=== PATIENT | female | born 1980 | race American Indian/Alaskan Native ===

== ENCOUNTER 2017-09-17 02:52 | Inpatient (IN) | payer MEDICAID, OTHER ==
[2017-09-17] MEDS ORDERED: Methylergonovine 0.2 MG/1 ML Amp IM PRN (03:02)
[2017-09-17] MEDS ORDERED: Carboprost Tromethamine 250 MCG/1 ML Amp IM PRN (03:02)
[2017-09-17] MEDS ORDERED: Misoprostol 400 MCG (4 X 100 MCG TAB) RECTAL PRN (03:02)
[2017-09-17] MEDS ORDERED: Ondansetron 4 MG/2 ML SDV IV PRN (03:02)
[2017-09-17] MEDS ORDERED: Lactated Ringers 500 ML IV ONE (03:02)
[2017-09-17] MEDS ORDERED: Lidocaine 1% 30 ML SDV INJECT PRN (03:02)
[2017-09-17] MEDS ORDERED: Tranexamic Acid 1,000 MG in Sodium Chloride 0.9% 100 ML IV PRN (03:02)
--- NOTE | 2017-09-17 03:10 | PCM.LDHP ---
L&D History of Present Illness - General Date of Service: 09/17/17 Admit Problem/Dx: Patient Status Order with Admit Dx/Problem 09/17/17 03:02 Patient Status [ADT] Routine Admission Diagnosis/Problem Admission Diagnosis/Problem care Source of Information: Patient History Limitations: Reports: No Limitations - History of Present Illness Introduction:: 37-year-old presents to L&D via EMS with increased contractions. 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 She has been matt since then with increasing intensity and frequency. Baby has been active. No vaginal bleeding or leaking of fluid. - Related Data Allergies/Adverse Reactions: Allergies Allergy/AdvReac Type Severity Reaction Status Date / Time Penicillins Allergy unknown Verified 09/16/17 15:12 Home Medications: Home Meds Calcium Carbonate/Vitamin D3 [Calcium 500 + Vit D Caplet] 1 tab PO DAILY [History] FLUoxetine [PROzac] 40 mg PO DAILY 03/15/14 [History] Ibuprofen [Motrin] 400 mg PO TID 03/15/14 [History] Multivitamin [Multi Vitamin Daily] 1 each PO DAILY 03/15/14 [History] Naproxen Sodium [Aleve] 220 mg PO TID PRN 03/15/14 [History] traZODone 50 mg PO BEDTIME 03/15/14 [History] Past Medical History Genitourinary History: Reports: STD TRIAL PARALEGAL History: Reports: , Spontaneous , Other (See Below) Other OB/BYN History: molar . 9 males. 2 females. 3 PPH. 1 retained placenta Psychiatric History: Reports: Anxiety, Depression Hematologic History: Reports: Anemia, Blood Transfusion(s) Other Hematologic History: hgb 7.9 on 09-16-17 Dermatologic History: Reports: Urticaria Other Dermatologic History: itchy to abdomen. small ? pock thorpe on arms and abdomen - Infectious Disease History Infectious Disease History: Reports: Hepatitis C Other Infectious Disease History: hx of HCV which RNA on 09-04-17 was negative - Past Surgical History Female Surgical History: Reports: D&C, Dilitation & Evacuation Dermatological Surgical History: Reports: None Social & Family History - Family History Family Medical History: Noncontributory HEENT: Reports: None Cardiac: Reports: Hypertension, [place] OBGYN: Reports: , Other (See Below) Other OBGYN Family History: multiple births Psychiatric: Reports: Anxiety, Depression Endocrine/Metabolic: Reports: Diabetes, Type I, Diabetes, type II, IDDM Hematologic: Reports: Anemia Oncologic: Reports: Uterine, Other (See Below) Other Oncologic Family History: mother grandmother aunt - Tobacco Use Smoking Status *Q: Current Every Day Smoker Years of Tobacco use: 15 Packs/Tins Daily: 1 Used Tobacco, but Quit: No - Alcohol Use Days Per Week of Alcohol Use: 0 - Recreational Drug Use Recreational Drug Use: Yes Drug Use in Last 12 Months: Yes Recreational Drug Type: 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 Recreational Drug Use Frequency: Patient Refuses To Answer H&P Review of Systems - Review of Systems: Review Of Systems: See Below General: Reports: No Symptoms HEENT: Reports: No Symptoms Pulmonary: Reports: No Symptoms Cardiovascular: Reports: No Symptoms Gastrointestinal: Reports: No Symptoms Genitourinary: Reports: No Symptoms Musculoskeletal: Reports: Back Pain Skin: Reports: No Symptoms L&D Exam - Exam Exam: See Below - OB Specific Contraction Intensity: Moderate to Strong Movement: Active Heart Tones: Present Heart Tones per Min: 120 Heart Rate (FHR) Variability: Moderate (6-25 bmp) Presentation: Vertex - Dinero Score Dinero Score Cervix Position: Anterior Dinero Score Consistency: Soft Dinero Score Effacement: >80% Dinero Score Dilation: > 5 cm Dinero Score 's Station: -1 ,0 Dinero Score Total: 12 - Exam General: Alert, Oriented HEENT: Mucosa Moist & [place], Posterior Pharynx Clear Lungs: Clear to Auscultation, Normal Respiratory Effort Cardiovascular: Regular Rate, Regular Rhythm Extremities: No Pedal Edema Skin: Warm, Dry, Intact - Problem List (1) Chlamydia infection affecting in third trimester SNOMED Code(s): 6380567102835 ICD Code: O98.313 - OTH INFECT W SEXL MODE OF TRANSMISS COMP PREG, THIRD TRI ; A74.9 - CHLAMYDIAL INFECTION, UNSPECIFIED Status: Acute Current Visit: Yes (2) Gonorrhea affecting in third trimester SNOMED Code(s): 66311057 ICD Code: O98.213 - GONORRHEA COMPLICATING , THIRD TRIMESTER Status: Acute Current Visit: Yes (3) Limited care in third trimester SNOMED Code(s): 901762376 ICD Code: O09.33 - SUPRVSN OF PREG W INSUFFICIENT ANTENAT CARE, THIRD TRIMESTER Status: Acute Current Visit: Yes (4) History of hepatitis C SNOMED Code(s): 97694304326193 ICD Code: Z86.19 - PERSONAL HISTORY OF OTHER INFECTIOUS AND PARASITIC DISEASES Status: Acute Current Visit: Yes (5) Anemia affecting in third trimester SNOMED Code(s): 66967624 ICD Code: O99.013 - ANEMIA COMPLICATING , THIRD TRIMESTER Status: Acute Current Visit: Yes (6) Grand multipara in labor in third trimester SNOMED Code(s): 637871628 ICD Code: O09.43 - SUPRVSN OF W GRAND MULTIPARITY, THIRD TRIMESTER Status: Acute Current Visit: Yes (7) Drug use affecting in third trimester SNOMED Code(s): 73146151, 308809544 ICD Code: O99.323 - DRUG USE COMPLICATING , THIRD TRIMESTER Status : Acute Current Visit: Yes (8) History of hemorrhage, currently in third trimester SNOMED Code(s): 654242528, 341610710 ICD Code: O09.293 - SUPRVSN OF PREG W POOR REPRODCTV OR OBSTET HX, THIRD TRI Status: Acute Current Visit: Yes (9) Advanced maternal age during SNOMED Code(s): 445464689 ICD Code: [id number] - Status: Acute Current Visit: Yes Problem List Initiated/Reviewed/Updated: Yes Orders Last 24hrs: Active Orders 24 hr Category Date Time Status Patient Status [ADT] Routine ADT 09/17/17 03:02 Ordered Communication Order [RC] ASDIRECTED Care 09/17/17 03:02 Ordered Heart Tones [RC] PER UNIT ROUTINE Care 09/17/17 03:02 Ordered Notify Provider Vital Signs OB [RC] ASDIRECTED Care 09/17/17 03:02 Ordered Notify Provider [RC] PRN Care 09/17/17 03:02 Ordered Pump Management, Intrathecal [RC] ASDIRECTED Care 09/17/17 03:02 Ordered Up ad Yoon [RC] ASDIRECTED Care 09/17/17 03:02 Ordered Vital Signs [RC] PER UNIT ROUTINE Care 09/17/17 03:02 Ordered Consult to Wood Panel Inspector [CONS] Routine Cons 09/17/17 03:02 Ordered CBC W/O DIFF,HEMOGRAM [HEME] Routine Lab 09/17/17 03:02 Ordered DRUG SCREEN,SERUM [CHEM] Stat Lab 09/17/17 03:02 Ordered RED BLOOD CELLS LP [BBK] Routine Lab 09/17/17 02:46 Received TYPE AND SCREEN [BBK] Routine Lab 09/17/17 02:46 Received Acetaminophen [Tylenol] Med 09/17/17 03:02 Ordered 650 mg PO Q4H PRN Carboprost Tromethamine [Hemabate DS] Med 09/17/17 03:02 Ordered 250 mcg IM ASDIRECTED PRN Lactated Ringers @ 125 MLS/HR(1000ml) Med 09/17/17 03:15 Ordered Lactated Ringers [Ringers, Lactated] 1,000 ml IV ASDIRECTED Lactated Ringers [Ringers, Lactated] 500 ml Med 09/17/17 03:02 Ordered IV .BOLUS Lidocaine 1% [Xylocaine-MPF 1%] Med 09/17/17 03:02 Ordered 10 ml INJECT ASDIRECTED PRN Methylergonovine [Methergine] Med 09/17/17 03:02 Ordered 0.2 mg IM ASDIRECTED PRN Misoprostol [Cytotec] Med 09/17/17 03:02 Ordered 800 mcg RECTAL ASDIRECTED PRN Ondansetron [Zofran] Med 09/17/17 03:02 Ordered 4 mg IV Q4H PRN Oxytocin 30 Units in NS @ 2 MUNITS/MIN(500ml) Med 09/17/17 03:15 Ordered Oxytocin/Normal Saline [Pitocin in NS 30 UNIT/500 ML] 30 unit in 500 ml IV TITRATE Sodium Chloride 0.9% [Saline Flush] Med 09/17/17 03:02 Ordered 10 ml FLUSH ASDIRECTED PRN Tranexamic Acid [Cyklokapron] 1,000 mg Med 09/17/17 03:02 Ordered Sodium Chloride 0.9% [Normal Saline] 100 ml IV ONETIME Saline Lock Insert [OM.PC] Routine Oth 09/17/17 03:02 Ordered Resuscitation Status Routine Resus Stat 09/17/17 03:02 Ordered Assessment/Plan Comment:: 1. Admit to L&D 2. Obtain UDS 3. Transfuse 2 units pRBCs for anemia and history of PPH 4. Patient does desire intrathecal 5. AROM when comfortable 6. Excpectant management. Anticipate . Martha So MD
[2017-09-17] MEDS: Lactated Ringers 1,000 ML IV SCH ×2 (03:23→03:51)
[2017-09-17] MEDS ORDERED: EPINEPHrine 1 MG/ML SDV ONE ×2 (03:31→11:18)
[2017-09-17] MEDS ORDERED: fentaNYL 100 MCG/2 ML SDV ONE (03:31)
--- NOTE | 2017-09-17 04:16 | PCM.PRNOTE ---
- Free Text/Narrative Note: Requested to provide analgesia to full term patient in severe pain. Upon entering the room, patient is supine in bed complaining of severe pelvic pain and discomfort. Procedure was discussed with patient including adverse outcomes and expectations. Pt consented to analgesia, SAB/IT. Pt placed into a sitting position. Landmarks for SAB/IT were identified and marked. Back was prepped with betadine x3. A sterile, transparent, fenestrated drape was applied. Excess betadine was removed. Using 3 mL of a 1% lidocaine solution, a skin wheel was placed at the L3/L4 interspace. A 24 ga (4 inch) Pencan spinal needle was inserted until positive for CSF. Negative for heme or paresthesias. Injected fentanyl 20 mcg, sufentanil 10 mcg, and 9.75 mg of a 0.75% bupivacaine solution with an epi wash. Pt was placed left lateral position for approximately 20 minutes. There were zero complications or adverse outcomes. Will continue to monitor.
[2017-09-17] MEDS: Oxytocin/Normal Saline 30 UNIT/500 ML BAG IV SCH ×2 (05:45→08:12)
[2017-09-17] MEDS ORDERED: Sodium Chloride 0.9% 10 ML Syringe FLUSH PRN (06:00)
[2017-09-17] MEDS ORDERED: Benzocaine/Menthol 20%-0.5% Spray 56 GM Canister TOP PRN (06:00)
[2017-09-17] MEDS ORDERED: Simethicone 80 MG Tab.Chew PO PRN (06:00)
[2017-09-17] MEDS ORDERED: Oxytocin 10 Units/1 ML SDV IM PRN (06:00)
[2017-09-17] MEDS: Docusate Sodium 100 MG Cap PO PRN ×2 (09:51→22:51)
[2017-09-17] MEDS: Ibuprofen 800 MG Tab PO PRN ×2 (09:51→20:00)
[2017-09-17] MEDS: Prenatal Multivitamin with Calcium/Folic Acid/Iron Tab PO SCH (09:51)
[2017-09-17] MEDS ORDERED: fentaNYL 100 MCG/2 ML SDV ITHECAL ONE (11:18)
[2017-09-17] MEDS: Acetaminophen 325 MG Tab PO PRN ×2 (17:43→22:51)
[2017-09-17] MEDS: Sodium Chloride 0.9% 10 ML Syringe FLUSH PRN ×2 (22:56→22:57)
[2017-09-18] MEDS: Ibuprofen 800 MG Tab PO PRN (09:10)
[2017-09-18] MEDS: Docusate Sodium 100 MG Cap PO PRN (09:10)
[2017-09-18] MEDS: Prenatal Multivitamin with Calcium/Folic Acid/Iron Tab PO SCH (09:10)
--- NOTE | 2017-09-18 10:11 | PCM.DEL ---
L & D Note - General Info Date of Service: 09/17/17 - Delivery Note Labor: Spontaneous, Augmented by ARM Delivery Outcome: Livebirth Infant Delivery Method: Spontaneous Vaginal Delivery-Single Presentation: Vertex Nuchal Cord: None Anesthesia Type: Intrathecal Amniotic Fluid Description: Clear Episiotomy Type: None Laceration: None Placenta: Intact, Spontaneous Cord: 3 Vessels Estimated Blood Loss: 375 Resuscitation Needed: No [place]: Stimulated, Warmed, Cabins Used Provider: Martha So Score 1 min: 8 Score 5 min: 9 Post Delivery Events: Other (see below) (Uterine atony) Delivery Comments (Free Text/Narrative):: 37-year-old at 37w6d presented to labor and delivery in active labor. Upon arrival, patient was noted to be 8 cm dilated with membranes intact. Patient received intrathecal for pain control. She also received 1 unit of blood while in labor and a second unit of blood due to her significant anemia and history of hemorrhage 3. Patient progressed to complete dilation approximately 2-1/2 hours after arrival. Membranes were ruptured for large amount of clear fluid. Patient began pushing, and TXA was given for prophylaxis due to her history of hemorrhage. Patient questions or less than 20 minutes before delivering a viable male infant with Apgars of 8 and 9 at 1 and 5 minutes respectively. Patient was placed on mother' s chest. Approximately 45 seconds later, the cord was clamped 2 and cut. Cord blood was collected. Using uterine massage and gentle cord traction, the placenta delivered intact. The perineum and labia were examined and noted to be intact. Patient had minimal bleeding at rest. However, with uterine massage, she did have increased bleeding that was noted to be more than expected. Given her history of hemorrhage, 800 g of rectal Cytotec was placed. Pitocin rate was also increased. Uterus was noted to be firm, and bleeding was noted to be appropriate at that time. Patient tolerated the procedure well, and there were no immediate complications. Martha So MD - General Info Date of Service: 09/18/17 - Patient Data Vitals - Most Recent: Last Vital Signs Temp 37.1 C 09/17/17 20:00 Pulse 73 09/17/17 20:00 Resp 20 09/17/17 20:00 BP 120/53 L 09/17/17 20:00 Pulse Ox 100 09/17/17 20:00 Weight - Most Recent: 73.936 kg I&O - Last 24 Hours: Intake & Output 09/17/17 09/18/17 09/18/17 22:59 06:59 14:59 Output Total 800 Balance -800 Lab Results Last 24 Hours: Laboratory Results - last 24 hr 09/17/17 Range/Units 16:10 WBC 18.1 H (5.0-10.0) 10^3/uL RBC 4.18 L (4.2-5.4) 10^6/uL Hgb 8.5 L (12.0-16.0) g/dL Hct 27.4 L (37.0-47.0) % MCV 65.6 L (80-100) fL MCH 20.3 L (27.0-34.0) pg MCHC 31.0 L (33.0-35.0) g/dL Plt Count 212 (150-450) 10^3/uL Med Orders - Current: Current Medications Acetaminophen (Tylenol) 650 mg PO Q4H PRN PRN Reason: Pain (Mild 1-3) and fever Last Admin: 09/17/17 22:51 Dose: 650 mg Benzocaine/Menthol (Dermoplast Pain Relief [place]) 0 gm TOP Q4H PRN PRN Reason: Perineal comfort measures Last Admin: 09/17/17 09:52 Dose: 1 spray Carboprost Tromethamine (Hemabate Ds) 250 mcg IM ASDIRECTED PRN PRN Reason: HEMORRHAGE Docusate Sodium (Colace) 100 mg PO BID PRN PRN Reason: Constipation Last Admin: 09/18/17 09:10 Dose: 100 mg Oxytocin/Sodium Chloride (Pitocin In Ns 30 Unit/500 Ml) 30 unit in 500 mls @ 2 mls/hr IV TITRATE ESTELA; 2 MUNITS/MIN PRN Reason: Protocol Last Titration: 09/17/17 09:14 Dose: 50 munits/min, 50 mls/hr Tranexamic Acid 1,000 mg/ (Sodium Chloride) 110 mls @ 660 mls/hr IV ONETIME PRN PRN Reason: Bleeding Last Admin: 09/17/17 05:07 Dose: 660 mls/hr Ibuprofen (Motrin) 800 mg PO Q8H PRN PRN Reason: Mild Pain or Fever Last Admin: 09/18/17 09:10 Dose: 800 mg Methylergonovine Maleate (Methergine) 0.2 mg IM ASDIRECTED PRN PRN Reason: Hemorrhage Misoprostol (Cytotec) 800 mcg RECTAL ASDIRECTED PRN PRN Reason: Hemorrhage Last Admin: 09/17/17 05:55 Dose: 800 mcg Ondansetron HCl (Zofran) 4 mg IV Q4H PRN PRN Reason: Nausea/Vomiting Last Admin: 09/17/17 03:23 Dose: 4 mg Oxytocin (Pitocin) 10 unit IM ONETIME PRN PRN Reason: Bleeding Prenat Multivit/Document Management Analyst/Iron/Folic Ac ( Plus Iron) 1 each PO DAILY ESTELA Last Admin: 09/18/17 09:10 Dose: 1 each Simethicone (Simethicone) 80 mg PO Q4H PRN PRN Reason: Gas Sodium Chloride (Saline Flush) 10 ml FLUSH ASDIRECTED PRN PRN Reason: Keep Vein Open Last Admin: 09/17/17 22:57 Dose: 10 ml Sodium Chloride (Saline Flush) 10 ml FLUSH ASDIRECTED PRN PRN Reason: Keep Vein Open Discontinued Medications Epinephrine HCl (Adrenalin) Confirm Administered Dose 1 mg .ROUTE .STK-MED ONE Stop: 09/17/17 03:32 Last Admin: 09/17/17 05:08 Dose: Not Given Epinephrine HCl (Adrenalin) 0.1 mg .XX .STK-MED ONE Stop: 09/17/17 11:19 Fentanyl (Sublimaze) Confirm Administered Dose 100 mcg .ROUTE .STK-MED ONE Stop: 09/17/17 03:32 Last Admin: 09/17/17 05:09 Dose: Not Given Fentanyl (Sublimaze) 20 mcg ITHECAL .STK-MED ONE Stop: 09/17/17 11:19 Lactated Ringer's (Ringers, Lactated) 500 mls @ 999 mls/hr IV .BOLUS ONE Stop: 09/17/17 03:32 Last Admin: 09/17/17 08:12 Dose: Not Given Lactated Ringer's (Ringers, Lactated) 1,000 mls @ 125 mls/hr IV ASDIRECTED ESTELA Last Admin: 09/17/17 03:51 Dose: 125 mls/hr Lidocaine HCl (Xylocaine-Mpf 1%) 10 ml INJECT ASDIRECTED PRN PRN Reason: Perineal Repair Sufentanil Citrate (Sufenta) Confirm Administered Dose 50 mcg .ROUTE .STK-MED ONE Stop: 09/17/17 03:33 Last Admin: 09/17/17 05:11 Dose: Not Given Sufentanil Citrate (Sufenta) 10 mcg ITHECAL .STK-MED ONE Stop: 09/17/17 11:19 - Problem List & Annotations (1) Chlamydia infection affecting in third trimester SNOMED Code(s): 2258468941691 Code(s): O98.313 - OTH INFECT W SEXL MODE OF TRANSMISS COMP PREG, THIRD TRI; A74.9 - CHLAMYDIAL INFECTION, UNSPECIFIED Status: Acute Current Visit: Yes (2) Gonorrhea affecting in third trimester SNOMED Code(s): 95565337 Code(s): O98.213 - GONORRHEA COMPLICATING , THIRD TRIMESTER Status : Acute Current Visit: Yes (3) Limited care in third trimester SNOMED Code(s): 851989749 Code(s): O09.33 - SUPRVSN OF PREG W INSUFFICIENT ANTENAT CARE, THIRD TRIMESTER Status: Acute Current Visit: Yes (4) History of hepatitis C SNOMED Code(s): 86719246500276 Code(s): Z86.19 - PERSONAL HISTORY OF OTHER INFECTIOUS AND PARASITIC DISEASES Status: Acute Current Visit: Yes (5) Anemia affecting in third trimester SNOMED Code(s): 43312769 Code(s): O99.013 - ANEMIA COMPLICATING , THIRD TRIMESTER Status: Acute Current Visit: Yes (6) Grand multipara in labor in third trimester SNOMED Code(s): 779867543 Code(s): O09.43 - SUPRVSN OF W GRAND MULTIPARITY, THIRD TRIMESTER Status: Acute Current Visit: Yes (7) Drug use affecting in third trimester SNOMED Code(s): 94870320, 166436861 Code(s): O99.323 - DRUG USE COMPLICATING , THIRD TRIMESTER Status : Acute Current Visit: Yes (8) History of hemorrhage, currently in third trimester SNOMED Code(s): 011757891, 572643515 Code(s): O09.293 - SUPRVSN OF PREG W POOR REPRODCTV OR OBSTET HX, THIRD TRI Status: Acute Current Visit: Yes (9) Advanced maternal age during SNOMED Code(s): 658046406 Code(s): SEO7909 - Status: Acute Current Visit: Yes (10) (normal spontaneous vaginal delivery) SNOMED Code(s): 82194920 Code(s): O80 - ENCOUNTER FOR FULL-TERM UNCOMPLICATED DELIVERY Status: Acute Current Visit: Yes - Problem List Review Problem List Initiated/Reviewed/Updated: Yes - Assessment Assessment:: 37-year-old now status post - Plan Plan:: 1. Initiate routine cares. 2. Complete transfusion of 2 units packed red blood cells 3. We'll check hemoglobin at 1600 today 4. Closely monitor bleeding 5. Mother plans to bottlefeed 6. Anticipate discharge 09/19/2017 Martha So MD
[2017-09-18 10:12] VITALS: BP 110/60
--- NOTE | 2017-09-18 10:22 | PCM.DCSUM1 ---
Discharge Summary - Hospital Course Free Text/Narrative:: 37-year-old now PPD #1 status post - Discharge Data Discharge Date: 09/18/17 Discharge Disposition: Against Medical Advice 07 Condition: Good - Discharge Diagnosis/Problem(s) (1) Chlamydia infection affecting in third trimester SNOMED Code(s): 5398046040484 ICD Code: O98.313 - OTH INFECT W SEXL MODE OF TRANSMISS COMP PREG, THIRD TRI ; A74.9 - CHLAMYDIAL INFECTION, UNSPECIFIED Status: Acute Current Visit: Yes (2) Gonorrhea affecting in third trimester SNOMED Code(s): 02924541 ICD Code: O98.213 - GONORRHEA COMPLICATING , THIRD TRIMESTER Status: Acute Current Visit: Yes (3) Limited care in third trimester SNOMED Code(s): 831674601 ICD Code: O09.33 - SUPRVSN OF PREG W INSUFFICIENT ANTENAT CARE, THIRD TRIMESTER Status: Acute Current Visit: Yes (4) History of hepatitis C SNOMED Code(s): 33462554354595 ICD Code: Z86.19 - PERSONAL HISTORY OF OTHER INFECTIOUS AND PARASITIC DISEASES Status: Acute Current Visit: Yes (5) Anemia affecting in third trimester SNOMED Code(s): 80496427 ICD Code: O99.013 - ANEMIA COMPLICATING , THIRD TRIMESTER Status: Acute Current Visit: Yes (6) Grand multipara in labor in third trimester SNOMED Code(s): 717609768 ICD Code: O09.43 - SUPRVSN OF W GRAND MULTIPARITY, THIRD TRIMESTER Status: Acute Current Visit: Yes (7) Drug use affecting in third trimester SNOMED Code(s): 59217105, 182875569 ICD Code: O99.323 - DRUG USE COMPLICATING , THIRD TRIMESTER Status : Acute Current Visit: Yes (8) History of hemorrhage, currently in third trimester SNOMED Code(s): 960615418, 050140761 ICD Code: O09.293 - SUPRVSN OF PREG W POOR REPRODCTV OR OBSTET HX, THIRD TRI Status: Acute Current Visit: Yes (9) Advanced maternal age during SNOMED Code(s): 365269456 ICD Code: [id number] - Status: Acute Current Visit: Yes (10) (normal spontaneous vaginal delivery) SNOMED Code(s): 50473016 ICD Code: O80 - ENCOUNTER FOR FULL-TERM UNCOMPLICATED DELIVERY Status: Acute Current Visit: Yes - Patient Summary/Data Operative Procedure(s) Performed: None Complications: None Consults: Consultations 09/17/17 03:02 Consult to Processor Helper [CONS] Routine Labs Pending at D/C: Patient was to have repeat CBC 09/19/17 prior to discharge Recommended Follow-up Testing/Procedures: None Planned Operative Procedure(s) after DC: None Hospital Course: Please see subjective section - Patient Instructions Diet: Usual Diet as Tolerated Activity: As Tolerated, No Lifting Over 20 Pounds Driving: May Drive Today Showering/Bathing: May Shower Notify Provider of: Fever, Increased Pain, Drainage - Discharge Plan Home Medications: Home Meds Calcium Carbonate/Vitamin D3 [Calcium 500 + Vit D Caplet] 1 tab PO DAILY [History] FLUoxetine [PROzac] 40 mg PO DAILY 03/15/14 [History] Ibuprofen [Motrin] 400 mg PO TID 03/15/14 [History] Multivitamin [Multi Vitamin Daily] 1 each PO DAILY 03/15/14 [History] Naproxen Sodium [Aleve] 220 mg PO TID PRN 03/15/14 [History] traZODone 50 mg PO BEDTIME 03/15/14 [History] Vit #108/Iron/FA [ One Tablet] 1 tab PO DAILY 09/17/17 [History ] - Discharge Summary/Plan Comment Discharge Summary/Plan Comment: Patient was originally seen on rounds at approximately 8:30 this morning. At that time, she was agreeable to staying until tomorrow for repeat complete blood count given her anemia and blood loss. I received a phone call from nursing at 9:15 AM stating the patient was requesting discharge. I refused to discharge patient given that another 24 hours of observation is medically indicated given the above history. Patient elected to leave AGAINST MEDICAL ADVICE. Martha So MD - General Info Date of Service: 09/18/17 Subjective Update: Patient is doing well. She does complain of uterine cramping. No dizziness or lightheadedness. She is tolerating a general diet. She is ambulating without difficulty. She is urinating and passing gas. No concerns per patient or per nursing. Functional Status: Reports: Pain Controlled, Tolerating Diet, Ambulating, Urinating. Denies: New Symptoms - Review of Systems General: Reports: No Symptoms HEENT: Reports: No Symptoms Pulmonary: Reports: No Symptoms Cardiovascular: Reports: No Symptoms Gastrointestinal: Reports: No Symptoms Genitourinary: Reports: No Symptoms Musculoskeletal: Reports: No Symptoms Skin: Reports: No Symptoms - Patient Data Vitals - Most Recent: Last Vital Signs Temp 36.4 C 09/18/17 08:00 Pulse 58 L 09/18/17 08:00 Resp 18 09/18/17 08:00 BP 110/60 09/18/17 08:00 Pulse Ox 100 09/18/17 08:00 Weight - Most Recent: 73.936 kg I&O - Last 24 hours: Intake & Output 09/17/17 09/18/17 09/18/17 22:59 06:59 14:59 Output Total 800 Balance -800 Lab Results - Last 24 hrs: Laboratory Results - last 24 hr 09/17/17 Range/Units 16:10 WBC 18.1 H (5.0-10.0) 10^3/uL RBC 4.18 L (4.2-5.4) 10^6/uL Hgb 8.5 L (12.0-16.0) g/dL Hct 27.4 L (37.0-47.0) % MCV 65.6 L (80-100) fL MCH 20.3 L (27.0-34.0) pg MCHC 31.0 L (33.0-35.0) g/dL Plt Count 212 (150-450) 10^3/uL Med Orders - Current: Current Medications Acetaminophen (Tylenol) 650 mg PO Q4H PRN PRN Reason: Pain (Mild 1-3) and fever Last Admin: 09/17/17 22:51 Dose: 650 mg Benzocaine/Menthol (Dermoplast Pain Relief Blue) 0 gm TOP Q4H PRN PRN Reason: Perineal comfort measures Last Admin: 09/17/17 09:52 Dose: 1 spray Carboprost Tromethamine (Hemabate Ds) 250 mcg IM ASDIRECTED PRN PRN Reason: HEMORRHAGE Docusate Sodium (Colace) 100 mg PO BID PRN PRN Reason: Constipation Last Admin: 09/18/17 09:10 Dose: 100 mg Oxytocin/Sodium Chloride (Pitocin In Ns 30 Unit/500 Ml) 30 unit in 500 mls @ 2 mls/hr IV TITRATE ESTELA; 2 MUNITS/MIN PRN Reason: Protocol Last Titration: 09/17/17 09:14 Dose: 50 munits/min, 50 mls/hr Tranexamic Acid 1,000 mg/ (Sodium Chloride) 110 mls @ 660 mls/hr IV ONETIME PRN PRN Reason: Bleeding Last Admin: 09/17/17 05:07 Dose: 660 mls/hr Ibuprofen (Motrin) 800 mg PO Q8H PRN PRN Reason: Mild Pain or Fever Last Admin: 09/18/17 09:10 Dose: 800 mg Methylergonovine Maleate (Methergine) 0.2 mg IM ASDIRECTED PRN PRN Reason: Hemorrhage Misoprostol (Cytotec) 800 mcg RECTAL ASDIRECTED PRN PRN Reason: Hemorrhage Last Admin: 09/17/17 05:55 Dose: 800 mcg Ondansetron HCl (Zofran) 4 mg IV Q4H PRN PRN Reason: Nausea/Vomiting Last Admin: 09/17/17 03:23 Dose: 4 mg Oxytocin (Pitocin) 10 unit IM ONETIME PRN PRN Reason: Bleeding Prenat Multivit/Senior [employer] Adf Developer/Iron/Folic Ac ( Plus Iron) 1 each PO DAILY ESTELA Last Admin: 09/18/17 09:10 Dose: 1 each Simethicone (Simethicone) 80 mg PO Q4H PRN PRN Reason: Gas Sodium Chloride (Saline Flush) 10 ml FLUSH ASDIRECTED PRN PRN Reason: Keep Vein Open Last Admin: 09/17/17 22:57 Dose: 10 ml Sodium Chloride (Saline Flush) 10 ml FLUSH ASDIRECTED PRN PRN Reason: Keep Vein Open Discontinued Medications Epinephrine HCl (Adrenalin) Confirm Administered Dose 1 mg .ROUTE .STK-MED ONE Stop: 09/17/17 03:32 Last Admin: 09/17/17 05:08 Dose: Not Given Epinephrine HCl (Adrenalin) 0.1 mg .XX .STK-MED ONE Stop: 09/17/17 11:19 Fentanyl (Sublimaze) Confirm Administered Dose 100 mcg .ROUTE .STK-MED ONE Stop: 09/17/17 03:32 Last Admin: 09/17/17 05:09 Dose: Not Given Fentanyl (Sublimaze) 20 mcg ITHECAL .STK-MED ONE Stop: 09/17/17 11:19 Lactated Ringer's (Ringers, Lactated) 500 mls @ 999 mls/hr IV .BOLUS ONE Stop: 09/17/17 03:32 Last Admin: 09/17/17 08:12 Dose: Not Given Lactated Ringer's (Ringers, Lactated) 1,000 mls @ 125 mls/hr IV ASDIRECTED ESTELA Last Admin: 09/17/17 03:51 Dose: 125 mls/hr Lidocaine HCl (Xylocaine-Mpf 1%) 10 ml INJECT ASDIRECTED PRN PRN Reason: Perineal Repair Sufentanil Citrate (Sufenta) Confirm Administered Dose 50 mcg .ROUTE .STK-MED ONE Stop: 09/17/17 03:33 Last Admin: 09/17/17 05:11 Dose: Not Given Sufentanil Citrate (Sufenta) 10 mcg ITHECAL .STK-MED ONE Stop: 09/17/17 11:19 - Exam General: Reports: Alert, Oriented Lungs: Reports: Clear to Auscultation, Normal Respiratory Effort Cardiovascular: Reports: Regular Rate, Regular Rhythm, No Murmurs GI/Abdominal Exam: Other (Uterine fundus 2 cm below umbilicus) *Q Meaningful Use (DIS) - VTE *Q VTE Criteria *Q: - Stroke *Q Stroke Criteria *Q: - AMI *Q AMI Criteria *Q:
== END 2017-09-18 09:45 | disposition left against medical advice (07) | DRG 775 ==
LOC: DL.OBCHECK 02:52 → DL.OB 02:55 → OBSVTOIN 05:48 → EEVIPCON 05:48 → DL.MS 11:43
PROVIDERS: ADMIT Family Medicine; ATTEND Family Medicine
PROC: 10E0XZZ Delivery of Products of Conception, External Approach (ICD-10-PCS; principal; 2017-09-17)
PROC: 00HU33Z Insertion of Infusion Device into Spinal Canal, Percutaneous Approach (ICD-10-PCS; 2017-09-17)
PROC: 3E0R3BZ Introduction of Anesthetic Agent into Spinal Canal, Percutaneous Approach (ICD-10-PCS; 2017-09-17)
PROC: 30233N1 Transfusion of Nonautologous Red Blood Cells into Peripheral Vein, Percutaneous Approach (ICD-10-PCS; 2017-09-17)
DX: O99.344 Other mental disorders complicating childbirth (principal); O99.324 Drug use complicating childbirth; Z37.0 Single live birth; F41.8 Other specified anxiety disorders; O99.334 Smoking (tobacco) complicating childbirth; O99.02 Anemia complicating childbirth; D64.9 Anemia, unspecified; F15.90 Other stimulant use, unspecified, uncomplicated; Z3A.00 Weeks of gestation of pregnancy not specified; Z88.1 Allergy status to other antibiotic agents; Z53.21 Procedure and treatment not carried out due to patient leaving prior to being seen by health care provider
CPT/HCPCS: 01967; 36415; 36430; 59409; 85027; 86850; 86900; 86901; 86920; 86922; A9270-GY; J0171; J2405; J2590; J3010; J7050; J7120; P9016

== ENCOUNTER 2021-06-15 08:52 | Emergency (ER) | payer SELFPAY ==
--- NOTE | 2021-06-15 09:01 | EDM.PDOC ---
ED HPI GENERAL MEDICAL PROBLEM - General Chief Complaint: Respiratory Problem Stated Complaint: AMBULANCE Time Seen by Provider: 06/15/21 09:10 Source of Information: Reports: Patient, EMS, Old Records, Provider (Dr. Emily Martin), RN, RN Notes Reviewed History Limitations: Reports: No Limitations - History of Present Illness INITIAL COMMENTS - FREE TEXT/NARRATIVE: G14, P12, spont. AB1, L12 at approx. 35 weeks gestation with no care arrives to ER by ambulance with fever and c/o shortness of breath and chest pain that began this morning upon waking. Temp of 100.5F on arrival, and increased to 102F shortly after arrival. 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 Denies contractions, vaginal bleeding, discharge, or abd/pelvic pain. Denies cough, sore throat, dysuria, or diarrhea. Duration: Constant Location: Reports: Chest Quality: Reports: Pressure, Sharp Severity: Moderate Improves with: Reports: None Worsens with: Reports: None Associated Symptoms: Reports: No Other Symptoms Mid-Sternal Chest Pain Score (Numeric/FACES): 5 - Related Data Allergies Allergy/AdvReac Type Severity Reaction Status Date / Time Penicillins Allergy unknown Verified 06/15/21 09:07 Home Meds: Home Meds Calcium Carbonate/Vitamin D3 [Calcium 500 + Vit D Caplet] 1 tab PO DAILY 0 03/15/14 [History] FLUoxetine [PROzac] 40 mg PO DAILY 03/15/14 [History] Ibuprofen [Motrin] 400 mg PO TID 03/15/14 [History] Multivitamin [Multi Vitamin Daily] 1 each PO DAILY 03/15/14 [History] Naproxen Sodium [Aleve] 220 mg PO TID PRN 03/15/14 [History] traZODone 50 mg PO BEDTIME 03/15/14 [History] Mv-Mn/Iron/FA/Herbal/Digestive [ One Tablet] 1 tab PO DAILY 09/17/17 [History] Past Medical History - Past Health History Medical/Surgical History: Denies Medical/Surgical History Genitourinary History: Reports: STD Other Genitourinary History: pt treated for STD [employer] History: Reports: , Spontaneous , Other (See Below) : 14 Para: 12 LMP (Approximate): (approx. 35wks as of 06/15/21. No care.) Other [employer] History: molar . 9 males. 2 females. 3 PPH. 1 retained placenta Psychiatric History: Reports: Addiction (Meth), Anxiety, Depression Hematologic History: Reports: Anemia, Blood Transfusion(s) Other Hematologic History: hgb 7.9 on 09-16-17 Dermatologic History: Reports: Urticaria Other Dermatologic History: itchy to abdomen. small ? pock thorpe on arms and abdomen - Infectious Disease History Infectious Disease History: Reports: Hepatitis C Other Infectious Disease History: hx of HCV which RNA on 09-04-17 was negative - Past Surgical History Female Surgical History: Reports: D&C, Dilitation & Evacuation Dermatological Surgical History: Reports: None Social & Family History - Family History Family Medical History: No Pertinent Family History HEENT: Reports: None Cardiac: Reports: Hypertension, [place] OBGYN: Reports: , Other (See Below) Other OBGYN Family History: multiple births Psychiatric: Reports: Anxiety, Depression Endocrine/Metabolic: Reports: Diabetes, Type I, Diabetes, type II, IDDM Hematologic: Reports: Anemia Oncologic: Reports: Uterine, Other (See Below) Other Oncologic Family History: mother grandmother aunt - Recreational Drug Use Recreational Drug Use: Yes Drug Use in Last 12 Months: Yes Recreational Drug Type: Reports: Marijuana/Hashish, Methamphetamine Recreational Drug Use Frequency: Patient Refuses To Answer - Living Situation & Occupation Living situation: Reports: with Family Occupation: Unemployed ED ROS GENERAL - Review of Systems Review Of Systems: Comprehensive ROS is negative, except as noted in HPI. ED EXAM - Physical Exam Exam: See Below Exam Limited By: No Limitations General Appearance: Alert, No Apparent Distress, Anxious, Other (Ill but non- toxic appearing) Eye Exam: Bilateral Eye: Normal Inspection (No scleral icterus) Nose: Normal Inspection Throat/Mouth: Normal Lips, Normal Voice, No Airway Compromise Head: Atraumatic, Normocephalic Neck: Normal Inspection, Supple, Non-Tender, Full Range of Motion. No: Lymphadenopathy (L), Lymphadenopathy (R) Respiratory/Chest: No Respiratory Distress, Lungs Clear, Normal Breath Sounds, No Accessory Muscle Use, Chest Non-Tender Cardiovascular: Regular Rate, Rhythm, No Edema GI/Abdominal Exam: Normal Bowel Sounds, Other (Gravid consistent with 35wk gestation, palpable active movement.). No: Guarding, Rigid, Rebound Rectal Exam: Deferred (Female) Exam: Deferred for Placenta Previa Heart Tones: Present (140's) Heart Tones per Min: 144 (See OB monitoring strip) Movement: Active Back Exam: Normal Inspection, Full Range of Motion. No: CVA Tenderness (L), CVA Tenderness (R) Extremities: Normal Inspection, Normal Range of Motion, Non-Tender, No Pedal Edema, Normal Capillary Refill, Other (Extensive needle track thorpe of various appearing chronicity). No: Domingo's Sign Neurological: Alert, Oriented, CN II-XII Intact, Normal Cognition, Normal Gait, No Motor/Sensory Deficits Psychiatric: Anxious, Flat Affect Skin Exam: Warm, Dry, Intact, Normal Color, No Rash #1 Interpretation EKG Date: 06/15/21 Time: 09:46 Rhythm: Other (Sinus tach) Rate (Beats/Min): 103 [place]: Normal P-Wave: Present QRS: Normal ST-T: Normal QT: Normal Comparison: NA - No Prior EKG EKG Interpretation Comments: Motion artifact Course - Vital Signs Last Recorded V/S: Last Vital Signs Temp 102 F H 06/15/21 10:52 Pulse 97 06/15/21 09:08 Resp 26 H 06/15/21 09:08 BP 106/55 L 06/15/21 09:08 Pulse Ox 100 06/15/21 09:08 - Orders/Labs/Meds Orders: Active Orders 24 hr Category Date Time Status Blood Glucose Check, Bedside [RC] ONETIME Care 06/15/21 09:05 Active Heart Rate [RC] CONTINUOUS Care 06/15/21 09:09 Active POC Labs [RC] ASDIRECTED Care 06/15/21 09:09 Active Peripheral IV Care [RC] . DIRECTED Care 06/15/21 09:07 Active Chest 1V Frontal [CR] Stat Exams 06/15/21 10:51 Taken OB Ltd 1 or More Fetus [US] Routine Exams 06/15/21 09:09 Taken CULTURE BLOOD [BC] Stat Lab 06/15/21 09:36 Received CULTURE BLOOD [BC] Stat Lab 06/15/21 09:57 Results CULTURE GROUP B STREP [RM] Routine Lab 06/15/21 09:09 Ordered DRUG SCREEN URINE BIORAD [URCHEM] Stat Lab 06/15/21 09:05 Ordered HBSAG SCREEN [REF] Urgent Lab 06/15/21 09:36 Received HEP C VIRUS AB [REF] Urgent Lab 06/15/21 09:36 Received MISC TEST Routine Lab 06/15/21 09:09 Ordered REFLEX LACTIC ACID YES OR NO [CHEM] Routine Lab 06/15/21 10:37 Received RPR (SYPHILIS SERO) W/ RFLX [REF] Routine Lab 06/15/21 09:36 Received RUBELLA ANTIBODY, IGG [REF] Routine Lab 06/15/21 09:36 Received STD PANEL 3 [REF] Stat Lab 06/15/21 09:07 Ordered UA RFX MELL AND CULT IF INDIC [URIN] Stat Lab 06/15/21 09:06 Ordered WET PREP [MYC] Routine Lab 06/15/21 09:09 Ordered Clindamycin Phosphate [Cleocin] 900 mg Med 06/15/21 11:08 Active Sodium Chloride 0.9% [Normal Saline AdvBag] 100 ml IV ONETIME Gentamicin 400 mg Med 06/15/21 11:17 Active Sodium Chloride 0.9% [Normal Saline] 100 ml IV ONETIME Sodium Chloride 0.9% [Normal Saline] 1,000 ml Med 06/15/21 10:47 Active IV .BOLUS Sodium Chloride 0.9% [Normal Saline] 1,000 ml Med 06/15/21 11:10 Active IV .BOLUS Sodium Chloride 0.9% [Saline Flush] Med 06/15/21 09:06 Active 10 ml FLUSH ASDIRECTED PRN Blood Culture x2 Reflex Set [OM.PC] Stat Oth 06/15/21 09:05 Ordered Peripheral IV Insertion Adult [OM.PC] Stat Oth 06/15/21 09:06 Ordered Medication Orders Sodium Chloride (Normal Saline) 1,000 mls @ 999 mls/hr IV .BOLUS ONE Stop: 06/15/21 11:47 Last Admin: 06/15/21 10:56 Dose: 999 mls/hr Documented by: [email or web address] Clindamycin Phosphate 900 mg/ (Sodium Chloride) 106 mls @ 200 mls/hr IV ONETIME ONE Stop: 06/15/21 11:39 Sodium Chloride (Normal Saline) 1,000 mls @ 999 mls/hr IV .BOLUS ONE Stop: 06/15/21 12:10 Gentamicin Sulfate 400 mg/ (Sodium Chloride) 110 mls @ 200 mls/hr IV ONETIME ONE Stop: 06/15/21 11:49 Sodium Chloride (Sodium Chloride 0.9% 10 Ml Syringe) 10 ml FLUSH ASDIRECTED PRN PRN Reason: Keep Vein Open Last Admin: 06/15/21 09:15 Dose: 10 ml Documented by: [id number] Labs: Laboratory Tests 06/15/21 06/15/21 06/15/21 Range/Units 09:06 09:20 09:36 WBC 7.8 (5.0-10.0) 10^3/uL RBC 3.91 L (4.2-5.4) 10^6/uL Hgb 7.3 L (12.0-16.0) g/dL Hct 25.1 L (37.0-47.0) % MCV 64.2 L (80-100) fL MCH 18.7 L (27.0-34.0) pg MCHC 29.1 L (33.0-35.0) g/dL Plt Count 184 (150-450) 10^3/uL Neut % (Auto) 94.4 H (42.2-75.2) % Lymph % (Auto) 4.7 L (20.5-50.1) % Clay % (Auto) 0.5 L (2-8) % Eos % (Auto) 0.1 L (1.0-3.0) % Baso % (Auto) 0.3 (0.0-1.0) % Add Manual Diff Yes Neutrophils % (Manual) 60 (42-75) % Band Neutrophils % 34 % Lymphocytes % (Manual) 2 L (20-50) % Monocytes % (Manual) 2 (2-8) % Metamyelocytes % 2 Hypochromasia 2+ moderate Microcytosis 2+ moderate PT (9.0-12.0) SEC INR (0.9-1.2) APTT (22.0-34.0) SEC Sodium (136-145) mmol/L Potassium (3.5-5.1) mmol/L Chloride (98-107) mmol/L Carbon Dioxide (21-32) mmol/L Anion Gap (7-13) mEq/L BUN (7-18) mg/dL Creatinine (0.55-1.02) mg/dL Est Cr Clr Drug Dosing mL/min Estimated GFR (MDRD) BUN/Creatinine Ratio (No establ ref range) Glucose (70-99) mg/dL POC Glucose 93 (70-99) mg/dL Lactic Acid (0.4-2.0) mmol/L Calcium (8.5-10.1) mg/dL Magnesium (1.8-2.4) mg/dL Total Bilirubin (0.2-1.0) mg/dL AST (15-37) U/L ALT (14-59) U/L Alkaline Phosphatase (46-116) U/L Troponin I High Sens (<=51) pg/mL Total Protein (6.4-8.2) g/dL Albumin (3.4-5.0) g/dL Globulin Albumin/Globulin Ratio Amylase (25-115) U/L Lipase (73-393) U/L Ethyl Alcohol (0) mg/dL HIV-1 Antibody (NONREACTIVE) HIV-2 Antibody (NONREACTIVE) HIV P24 Antigen (NONREACTIVE) Influenza Type A RNA Negative (NEGATIVE) Influenza Type B RNA Negative (NEGATIVE) SARS-CoV-2 RNA (WOJCIECH) Negative (NEGATIVE) Blood Type Gel Antibody Screen 06/15/21 06/15/21 06/15/21 Range/Units 09:36 09:36 09:36 WBC (5.0-10.0) 10^3/uL RBC (4.2-5.4) 10^6/uL Hgb (12.0-16.0) g/dL Hct (37.0-47.0) % MCV (80-100) fL MCH (27.0-34.0) pg MCHC (33.0-35.0) g/dL Plt Count (150-450) 10^3/uL Neut % (Auto) (42.2-75.2) % Lymph % (Auto) (20.5-50.1) % Clay % (Auto) (2-8) % Eos % (Auto) (1.0-3.0) % Baso % (Auto) (0.0-1.0) % Add Manual Diff Neutrophils % (Manual) (42-75) % Band Neutrophils % % Lymphocytes % (Manual) (20-50) % Monocytes % (Manual) (2-8) % Metamyelocytes % Hypochromasia Microcytosis PT 9.5 (9.0-12.0) SEC INR 0.9 (0.9-1.2) APTT 22.3 (22.0-34.0) SEC Sodium 138 (136-145) mmol/L Potassium 3.3 L (3.5-5.1) mmol/L Chloride 103 (98-107) mmol/L Carbon Dioxide 22 (21-32) mmol/L Anion Gap 16.3 H (7-13) mEq/L BUN 7 (7-18) mg/dL Creatinine 0.74 (0.55-1.02) mg/dL Est Cr Clr Drug Dosing 94.60 mL/min Estimated GFR (MDRD) > 60 BUN/Creatinine Ratio 9.5 (No establ ref range) Glucose 79 (70-99) mg/dL POC Glucose (70-99) mg/dL Lactic Acid 3.3 H* (0.4-2.0) mmol/L Calcium 8.5 (8.5-10.1) mg/dL Magnesium 1.4 L (1.8-2.4) mg/dL Total Bilirubin 0.6 (0.2-1.0) mg/dL AST 22 (15-37) U/L ALT 12 L (14-59) U/L Alkaline Phosphatase 288 H (46-116) U/L Troponin I High Sens 145 H* (<=51) pg/mL Total Protein 5.9 L (6.4-8.2) g/dL Albumin 2.0 L (3.4-5.0) g/dL Globulin 3.9 Albumin/Globulin Ratio 0.51 Amylase 36 (25-115) U/L Lipase 64 L (73-393) U/L Ethyl Alcohol < 3 (0) mg/dL HIV-1 Antibody (NONREACTIVE) HIV-2 Antibody (NONREACTIVE) HIV P24 Antigen (NONREACTIVE) Influenza Type A RNA (NEGATIVE) Influenza Type B RNA (NEGATIVE) SARS-CoV-2 RNA (WOJCIECH) (NEGATIVE) Blood Type Gel Antibody Screen 06/15/21 06/15/21 Range/Units 09:36 09:36 WBC (5.0-10.0) 10^3/uL RBC (4.2-5.4) 10^6/uL Hgb (12.0-16.0) g/dL Hct (37.0-47.0) % MCV (80-100) fL MCH (27.0-34.0) pg MCHC (33.0-35.0) g/dL Plt Count (150-450) 10^3/uL Neut % (Auto) (42.2-75.2) % Lymph % (Auto) (20.5-50.1) % Clay % (Auto) (2-8) % Eos % (Auto) (1.0-3.0) % Baso % (Auto) (0.0-1.0) % Add Manual Diff Neutrophils % (Manual) (42-75) % Band Neutrophils % % Lymphocytes % (Manual) (20-50) % Monocytes % (Manual) (2-8) % Metamyelocytes % Hypochromasia Microcytosis PT (9.0-12.0) SEC INR (0.9-1.2) APTT (22.0-34.0) SEC Sodium (136-145) mmol/L Potassium (3.5-5.1) mmol/L Chloride (98-107) mmol/L Carbon Dioxide (21-32) mmol/L Anion Gap (7-13) mEq/L BUN (7-18) mg/dL Creatinine (0.55-1.02) mg/dL Est Cr Clr Drug Dosing mL/min Estimated GFR (MDRD) BUN/Creatinine Ratio (No establ ref range) Glucose (70-99) mg/dL POC Glucose (70-99) mg/dL Lactic Acid (0.4-2.0) mmol/L Calcium (8.5-10.1) mg/dL Magnesium (1.8-2.4) mg/dL Total Bilirubin (0.2-1.0) mg/dL AST (15-37) U/L ALT (14-59) U/L Alkaline Phosphatase (46-116) U/L Troponin I High Sens (<=51) pg/mL Total Protein (6.4-8.2) g/dL Albumin (3.4-5.0) g/dL Globulin Albumin/Globulin Ratio Amylase (25-115) U/L Lipase (73-393) U/L Ethyl Alcohol (0) mg/dL HIV-1 Antibody Non-reactive (NONREACTIVE) HIV-2 Antibody Non-reactive (NONREACTIVE) HIV P24 Antigen Non-reactive (NONREACTIVE) Influenza Type A RNA (NEGATIVE) Influenza Type B RNA (NEGATIVE) SARS-CoV-2 RNA (WOJCIECH) (NEGATIVE) Blood Type A POSITIVE Gel Antibody Screen Negative Meds: Medications Generic Name Dose Route Start Last Admin Trade Name Freq PRN Reason Stop Dose Admin Sodium Chloride 1,000 mls @ 999 mls/hr 06/15/21 10:47 06/15/21 10:56 Normal Saline IV 06/15/21 11:47 999 mls/hr .BOLUS ONE Administration Clindamycin Phosphate 900 mg/ 106 mls @ 200 mls/hr 06/15/21 11:08 Sodium Chloride IV 06/15/21 11:39 ONETIME ONE Sodium Chloride 1,000 mls @ 999 mls/hr 06/15/21 11:10 Normal Saline IV 06/15/21 12:10 .BOLUS ONE Gentamicin Sulfate 400 mg/ 110 mls @ 200 mls/hr 06/15/21 11:17 Sodium Chloride IV 06/15/21 11:49 ONETIME ONE Sodium Chloride 10 ml 06/15/21 09:06 06/15/21 09:15 Sodium Chloride 0.9% 10 Ml Syringe FLUSH 10 ml ASDIRECTED PRN Administration Keep Vein Open Discontinued Medications Generic Name Dose Route Start Last Admin Trade Name Freq PRN Reason Stop Dose Admin Acetaminophen 650 mg 06/15/21 10:46 06/15/21 10:52 Acetaminophen 325 Mg Tab PO 06/15/21 10:47 650 mg NOW ONE Administration - Radiology Interpretation Free Text/Narrative:: OB US tech report: single IUP, cephalic presentation, longitudinal lie, complete placenta previa/anterior, nl amniotic fluid, ELIANA 14.1, 34w6d. XR Chest: Rt base atelectasis, see Rad. report. Both studies loaded to [facility] PACs system. - Re-Assessments/Exams Free Text/Narrative Re-Assessment/Exam: 06/15/21 Dr. Emily Martin consulted, and aware of the pt. Advises pt be transferred to higher level of care. Dr. Hanna accepts the pt to [facility] as direct admit. Departure - Departure Time of Disposition: 11:36 Disposition: DC/Tfer to Acute Hospital 02 Condition: Serious Clinical Impression: Drug use affecting in third trimester, Methamphetamine use, Anemia affecting in third trimester, Grand multiparity, History of hemorrhage, currently in third trimester, Advanced maternal age during Sepsis Qualifiers: Sepsis type: sepsis due to unspecified organism Sepsis acute organ dysfunction status: without acute organ dysfunction Qualified Code(s): A41.9 - Sepsis, unspecified organism No care in current Qualifiers: Trimester: third trimester Qualified Code(s): O09.33 - Supervision of with insufficient care, third trimester - Discharge Information *PRESCRIPTION DRUG MONITORING PROGRAM REVIEWED*: Not Applicable *COPY OF PRESCRIPTION DRUG MONITORING REPORT IN PATIENT CHANO: Not Applicable Forms: ED Department Discharge, Interfacility Transfer EMTALA Sepsis Event Note (ED) - Focused Exam Vital Signs: Vital Signs Temp Temp Pulse Resp BP Pulse Ox 06/15/21 10:52 102 F H 06/15/21 09:08 100.5 F 97 26 H 106/55 L 100 - My Orders Last 24 Hours: My Active Orders 06/15/21 09:05 Blood Glucose Check, Bedside [RC] ONETIME DRUG SCREEN URINE BIORAD [URCHEM] Stat Blood Culture x2 Reflex Set [OM.PC] Stat 06/15/21 09:06 UA RFX MELL AND CULT IF INDIC [URIN] Stat Sodium Chloride 0.9% [Saline Flush] 10 ml FLUSH ASDIRECTED PRN Peripheral IV Insertion Adult [OM.PC] Stat 06/15/21 09:07 Peripheral IV Care [RC] . DIRECTED STD PANEL 3 [REF] Stat 06/15/21 09:09 Heart Rate [RC] CONTINUOUS POC Labs [RC] ASDIRECTED OB Ltd 1 or More Fetus [US] Routine CULTURE GROUP B STREP [RM] Routine MISC TEST Routine WET PREP [MYC] Routine 06/15/21 09:36 CULTURE BLOOD [BC] Stat HBSAG SCREEN [REF] Urgent HEP C VIRUS AB [REF] Urgent RPR (SYPHILIS SERO) W/ RFLX [REF] Routine RUBELLA ANTIBODY, IGG [REF] Routine 06/15/21 09:57 CULTURE BLOOD [BC] Stat 06/15/21 10:37 REFLEX LACTIC ACID YES OR NO [CHEM] Routine 06/15/21 10:47 Sodium Chloride 0.9% [Normal Saline] 1,000 ml IV .BOLUS 06/15/21 10:51 Chest 1V Frontal [CR] Stat 06/15/21 11:08 Clindamycin Phosphate [Cleocin] 900 mg Sodium Chloride 0.9% [Normal Saline AdvBag] 100 ml IV ONETIME 06/15/21 11:10 Sodium Chloride 0.9% [Normal Saline] 1,000 ml IV .BOLUS 06/15/21 11:17 Gentamicin 400 mg Sodium Chloride 0.9% [Normal Saline] 100 ml IV ONETIME - Assessment/Plan Last 24 Hours: My Active Orders 06/15/21 09:05 Blood Glucose Check, Bedside [RC] ONETIME DRUG SCREEN URINE BIORAD [URCHEM] Stat Blood Culture x2 Reflex Set [OM.PC] Stat 06/15/21 09:06 UA RFX MELL AND CULT IF INDIC [URIN] Stat Sodium Chloride 0.9% [Saline Flush] 10 ml FLUSH ASDIRECTED PRN Peripheral IV Insertion Adult [OM.PC] Stat 06/15/21 09:07 Peripheral IV Care [RC] . DIRECTED STD PANEL 3 [REF] Stat 06/15/21 09:09 Heart Rate [RC] CONTINUOUS POC Labs [RC] ASDIRECTED OB Ltd 1 or More Fetus [US] Routine CULTURE GROUP B STREP [RM] Routine MISC TEST Routine WET PREP [MYC] Routine 06/15/21 09:36 CULTURE BLOOD [BC] Stat HBSAG SCREEN [REF] Urgent HEP C VIRUS AB [REF] Urgent RPR (SYPHILIS SERO) W/ RFLX [REF] Routine RUBELLA ANTIBODY, IGG [REF] Routine 06/15/21 09:57 CULTURE BLOOD [BC] Stat 06/15/21 10:37 REFLEX LACTIC ACID YES OR NO [CHEM] Routine 06/15/21 10:47 Sodium Chloride 0.9% [Normal Saline] 1,000 ml IV .BOLUS 06/15/21 10:51 Chest 1V Frontal [CR] Stat 06/15/21 11:08 Clindamycin Phosphate [Cleocin] 900 mg Sodium Chloride 0.9% [Normal Saline AdvBag] 100 ml IV ONETIME 06/15/21 11:10 Sodium Chloride 0.9% [Normal Saline] 1,000 ml IV .BOLUS 06/15/21 11:17 Gentamicin 400 mg Sodium Chloride 0.9% [Normal Saline] 100 ml IV ONETIME
[2021-06-15] MEDS ORDERED: Sodium Chloride 0.9% 10 ML Syringe FLUSH PRN (09:06)
[2021-06-15 09:11] VITALS: BP 106/55; PULSE 97
[2021-06-15 09:53] LABS: CORONAVIRUS COVID-19 NAA NEGATIVE (NEGATIVE)
[2021-06-15 10:05] LABS: PTT,PARTIAL THROMBOPLSTIN TIME 22.3 SEC (22.0-34.0)
[2021-06-15 10:10] LABS: ANION GAP 16.3 mEq/L (7-13); CHLORIDE,CL 103 mmol/L (98-107); SODIUM,NA 138 mmol/L (136-145)
[2021-06-15] MEDS ORDERED: Acetaminophen 325 MG Tab PO ONE (10:46)
[2021-06-15] MEDS ORDERED: Sodium Chloride 0.9% 1,000 ML IV ONE ×2 (10:47→11:10)
[2021-06-15] MEDS ORDERED: Clindamycin Phosphate 900 MG in Sodium Chloride 0.9% 100 ML IV ONE (11:08)
[2021-06-15] MEDS ORDERED: Gentamicin Pediatric 10 MG/ML 2 ML SDV IV ONE (11:16)
[2021-06-15] MEDS ORDERED: Gentamicin 400 MG in Sodium Chloride 0.9% 100 ML IV ONE (11:17)
--- NOTE | 2021-06-15 11:37 | CR ---
PROCEDURE INFORMATION: Exam: XR Chest Exam date and time: 06/15/2021 11:05 AM Age: 41 years old Clinical indication: Pain; Fever; Other: Chest; Additional info: Fever, chest pain, 35wk gestation TECHNIQUE: Imaging protocol: XR of the chest. Views: 1 view. COMPARISON: No relevant prior studies available. FINDINGS: Lungs: Unremarkable. No consolidation. Pleural spaces: Unremarkable. No pleural effusion. No pneumothorax. Heart/Mediastinum: Unremarkable. No cardiomegaly. Bones/joints: Unremarkable. IMPRESSION: No acute findings.
[2021-06-15 12:10] LABS: AMPHETAMINES,URINE NEGATIVE (NEGATIVE); BARBITURATES,URINE NEGATIVE (NEGATIVE); BENZODIAZEPINE,URINE NEGATIVE (NEGATIVE); MDMA (ECSTASY), URINE NEGATIVE (NEGATIVE); METHADONE,URINE NEGATIVE (NEGATIVE); METHAMPHETAMINES,URINE POSITIVE (NEGATIVE); OPIATES,URINE NEGATIVE (NEGATIVE); OXYCODONE,URINE NEGATIVE (NEGATIVE); PHENCYCLIDINE,URINE NEGATIVE (NEGATIVE); TCA,URINE NEGATIVE (NEGATIVE)
--- NOTE | 2021-06-15 12:43 | US ---
EXAMINATION: OB Ltd 1 or More Fetus SEX: Female AGE: 41 years CLINICAL HISTORY: 41-year-old third term gravid 14 para 12 high risk (no care) female. Interpretation: Enlarged uterus with a single live ( heart rate 144 bpm) intrauterine gestation longitudinal lie. Cephalic presentation. Satisfactory amniotic fluid volume (LEIANA 14.1 cm). Note: Mature (calcifications) anterior placenta,lower uterine segment, that extends down over the internal cervical os i.e. complete PLACENTA PREVIA. measurements: AUA 34 weeks 6 days. Estimated weight 2775 g (6 lbs. 2 oz.). Biparietal diameter 8.38 cm approximates a 33 week 6 day gestation. At circumference 29.53 cm equals a 32 week 5 day gestation. Abdominal circumference 33.09 cm equals a 37 week gestation. Femur length 6.97 cm equals a 35 week 6 day gestation. CONCLUSION: Average ultrasound age 34 weeks 6 days
[2021-06-16 10:42] LABS: C.TRACHOMATIS BY TMA Negative (Negative); N.GONORRHOEAE BY TMA Positive (Negative)
== END 2021-06-15 11:55 ==
LOC: DL.ED 08:52
DX: O98.813 Other maternal infectious and parasitic diseases complicating pregnancy, third trimester (principal); A41.9 Sepsis, unspecified organism; O99.013 Anemia complicating pregnancy, third trimester; D64.9 Anemia, unspecified; O09.33 Supervision of pregnancy with insufficient antenatal care, third trimester; O99.323 Drug use complicating pregnancy, third trimester; F15.90 Other stimulant use, unspecified, uncomplicated; R00.0 Tachycardia, unspecified; Z64.1 Problems related to multiparity; Z88.0 Allergy status to penicillin; Z79.899 Other long term (current) drug therapy; Z20.822 Contact with and (suspected) exposure to COVID-19; Z3A.34 34 weeks gestation of pregnancy
CPT/HCPCS: 0240U; 36415; 71045; 76815; 80053; 80305; 80307; 81001; 82150; 82947; 83605; 83690; 83735; 84484; 85025; 85610; 85730; 86592; 86762; 86803; 86850; 86900; 86901; 87040; 87081; 87210; 87340; 87389; 87491; 87591; 93005; 96365; 96375; 99285; A9270; J1580; J3490; J7030